=== PATIENT | male | born 1980 | race African-American/Black ===

== ENCOUNTER 2021-06-05 11:24 | Emergency (ER) | payer OTHER ==
[~2021-06-05] VITALS: Ht 182.9 cm; Wt 84.0 kg
[2021-06-05] MEDS ORDERED: SODIUM CHLORIDE 0.9% 1,000 ML IV ONE (11:45)
[2021-06-05 12:04] LABS: HEMATOCRIT. 30.2 % (42.0-52.0); MEAN CORPUSCULAR HEMOGLOBIN 25.2 pg (28.0-32.0); MEAN CORPUSCULAR VOLUME 76.1 fL (80.0-94.0); PLATELET 440 x1000/uL (130-400); RED BLOOD CELL COUNT 3.97 mill/uL (4.7-6.1)
[2021-06-05 12:13] LABS: CHLORIDE 104 mEq/L (98-107)
[2021-06-05 12:18] LABS: ETHANOL BLOOD < 10 mg/dL
[2021-06-05 12:34] LABS: CLARITY URINE CLEAR (CLEAR); COLOR URINE YELLOW (YELLOW); KETONES URINE NEGATIVE (NEGATIVE); LEUKOCYTE ESTERASE URINE NEGATIVE (NEGATIVE); NITRITE URINE NEGATIVE (NEGATIVE); OCCULT BLOOD URINE 1+ (NEGATIVE); PROTEIN URINE 2+ (NEGATIVE); SPECIFIC GRAVITY URINE 1.017 (1.005-1.030); UROBILINOGEN URINE 0.2 E.U./dL (0.2-1.0)
[2021-06-05 12:39] LABS: PLATELET ESTIMATE SLIGHTLY INCREASED
[2021-06-05 12:57] LABS: VALPROIC ACID < 3.0 ug/mL (50-100)
[2021-06-05 12:58] LABS: *BARBITURATES SCREEN URINE NEGATIVE (NEGATIVE); METHADONE URINE SCREEN NEGATIVE (NEGATIVE); PHENCYCLIDINE URINE SCREEN NEGATIVE (NEGATIVE)
[2021-06-05 12:59] LABS: *AMPHETAMINES SCREEN URINE PRESUMTIVE POSITIVE (NEGATIVE); *BENZODIAZEPINES SCREEN URINE NEGATIVE (NEGATIVE); *COCAINE SCREEN URINE NEGATIVE (NEGATIVE); CANNABINOID URINE SCREEN PRESUMTIVE POSITIVE (NEGATIVE); OPIATES URINE SCREEN NEGATIVE (NEGATIVE)
[2021-06-05] MEDS ORDERED: PHENYTOIN SODIUM EXTENDED 100MG CAPSULE PO NR (14:15)
[2021-06-05 15:12] VITALS: BP 105/61
== END 2021-06-05 16:08 | disposition home or self-care (01) ==
LOC: ER 11:24
DX: G40.909 Epilepsy, unspecified, not intractable, without status epilepticus (principal); F15.10 Other stimulant abuse, uncomplicated; E16.2 Hypoglycemia, unspecified; D50.9 Iron deficiency anemia, unspecified; R22.0 Localized swelling, mass and lump, head; F12.90 Cannabis use, unspecified, uncomplicated; F16.90 Hallucinogen use, unspecified, uncomplicated
CPT/HCPCS: 36415; 80053; 80165; 80185; 80305; 80320; 81003; 82962; 85025; 96360; 96361; 99283; J7030; G0480

== ENCOUNTER 2021-06-30 19:31 | Inpatient (IN) | payer OTHER ==
[~2021-06-30] VITALS: Ht 180.3 cm; Wt 50.8 kg
[2021-06-30] MEDS ORDERED: SODIUM CHLORIDE 0.9% 1,000 ML IV ONE (20:30)
[2021-06-30] MEDS ORDERED: LEVETIRACETAM 1000MG PREMIX 100 ML IV ONE (20:30)
[2021-06-30 21:24] LABS: HEMATOCRIT. 30.6 % (42.0-52.0); HEMOGLOBIN. 9.7 g/dL (14.0-18.0); MEAN CORPUSCULAR HEMOGLOBIN 23.7 pg (28.0-32.0); MEAN CORPUSCULAR VOLUME 75.3 fL (80.0-94.0); RED BLOOD CELL COUNT 4.07 mill/uL (4.7-6.1); RED CELL DISTRIBUTION WIDTH 16.9 % (11.6-14.6)
[2021-06-30 21:29] LABS: CHLORIDE 100 mEq/L (98-107)
[2021-06-30 21:34] LABS: ETHANOL BLOOD < 10 mg/dL
[2021-06-30 21:38] LABS: CREATINE KINASE 195 IU/L (39-308)
[2021-06-30 22:05] LABS: CLARITY URINE CLEAR (CLEAR); COLOR URINE YELLOW (YELLOW); KETONES URINE NEGATIVE (NEGATIVE); LEUKOCYTE ESTERASE URINE NEGATIVE (NEGATIVE); NITRITE URINE NEGATIVE (NEGATIVE); OCCULT BLOOD URINE NEGATIVE (NEGATIVE); PH URINE 7.5 (4.5-8.0); PROTEIN URINE 1+ (NEGATIVE); SPECIFIC GRAVITY URINE 1.016 (1.005-1.030)
[2021-06-30 22:20] LABS: *AMPHETAMINES SCREEN URINE PRESUMTIVE POSITIVE (NEGATIVE); *BENZODIAZEPINES SCREEN URINE NEGATIVE (NEGATIVE); *COCAINE SCREEN URINE NEGATIVE (NEGATIVE); CANNABINOID URINE SCREEN PRESUMTIVE POSITIVE (NEGATIVE); METHADONE URINE SCREEN NEGATIVE (NEGATIVE); OPIATES URINE SCREEN NEGATIVE (NEGATIVE); PHENCYCLIDINE URINE SCREEN NEGATIVE (NEGATIVE)
[2021-06-30 22:22] LABS: *BARBITURATES SCREEN URINE NEGATIVE (NEGATIVE)
[2021-07-01] MEDS ORDERED: KEPP500 MT
[2021-07-01 02:26] LABS: MEAN PLATELET VOLUME 6.9 fl (7.4-10.4); PLATELET 528 x1000/uL (130-400)
[2021-07-01 02:34] LABS: PLATELET ESTIMATE INCREASED
[2021-07-01] MEDS ORDERED: LEVETIRACETAM 500 MG in SODIUM CHLORIDE 0.9% 100 ML IV SCH (09:30)
[2021-07-01] MEDS ORDERED: SODIUM CHLORIDE 0.9% 1,000 ML IV SCH (09:30)
[2021-07-01] MEDS ORDERED: ONDANSETRON HCL 4MG/2ML INJ IV PRN (09:30)
[2021-07-01] MEDS ORDERED: IPRATROPIUM/ALBUTEROL 0.5-3(2.5)MG/3ML NEB HHN PRN (09:30)
[2021-07-01] MEDS ORDERED: LORAZEPAM 2MG/ML CPJ IV PRN (09:30)
[2021-07-01] MEDS ORDERED: DIPHENHYDRAMINE 50MG/ML VIAL IV PRN (09:30)
[2021-07-01] MEDS ORDERED: LEVETIRACETAM 500MG PREMIX 100 ML IV SCH (10:00)
[2021-07-01] MEDS ORDERED: LORAZEPAM 2MG/ML CPJ IM SCH (12:30)
[2021-07-01 16:44] LABS: TOTAL IRON BINDING CAPACITY 216 ug/dL (250-450)
[2021-07-01 17:00] VITALS: BP 156/103
[2021-07-01 17:28] VITALS: BP 156/103
[2021-07-01] MEDS: SODIUM CHLORIDE 0.9% 1,000 ML IV SCH (18:00)
[2021-07-01] MEDS: CLONIDINE 0.1MG TABLET PO PRN ×2 (18:15→18:22)
[2021-07-01 20:00] VITALS: BP 146/95
[2021-07-01 21:13] LABS: VITAMIN B12 SERUM 458 pg/mL (211-911)
[2021-07-02] VITALS (8 sets, daily range): BP systolic 125–161; BP diastolic 83–118
[2021-07-02] MEDS: LEVETIRACETAM 500MG PREMIX 100 ML IV SCH ×2 (01:27→09:13)
[2021-07-02] MEDS: ACETAMINOPHEN 325MG TABLET PO PRN ×2 (01:27→18:10)
[2021-07-02] MEDS: SODIUM CHLORIDE 0.9% 1,000 ML IV SCH (01:29)
[2021-07-02] MEDS: CLONIDINE 0.1MG TABLET PO PRN ×2 (05:10→18:10)
[2021-07-02] MEDS: FLUOXETINE HCL 10 MG CAPSULE PO SCH (13:00)
[2021-07-03] VITALS: BP 139/86
[2021-07-03 04:00] VITALS: BP 148/85
[2021-07-03] MEDS: LEVETIRACETAM 500MG PREMIX 100 ML IV SCH ×3 (06:55→21:05)
[2021-07-03 08:00] VITALS: BP 151/95
[2021-07-03] MEDS: FLUOXETINE HCL 10 MG CAPSULE PO SCH (08:47)
[2021-07-03] MEDS: SODIUM CHLORIDE 0.9% 1,000 ML IV SCH (08:48)
[2021-07-03 12:00] VITALS: BP 116/85
[2021-07-03 16:00] VITALS: BP 125/81
[2021-07-03 17:03] LABS: BASOPHILS % 0.8 % (0.0-2.0); EOSINOPHILS % 1.6 % (0.0-5.0); HEMATOCRIT. 28.4 % (42.0-52.0); HEMOGLOBIN. 9.3 g/dL (14.0-18.0); LYMPHOCYTES % 7.6 % (20.0-50.0); MEAN CORPUSCULAR HEMOGLOBIN 24.2 pg (28.0-32.0); MEAN CORPUSCULAR VOLUME 73.8 fL (80.0-94.0); MONOCYTES % 11.5 % (2.0-8.0); NEUTROPHILS % 78.5 % (40.0-76.0); PLATELET 488 x1000/uL (130-400); RED BLOOD CELL COUNT 3.84 mill/uL (4.7-6.1); RED CELL DISTRIBUTION WIDTH 16.5 % (11.6-14.6)
[2021-07-03 17:06] LABS: CHLORIDE 98 mEq/L (98-107)
[2021-07-04] VITALS: BP 130/88
[2021-07-04 08:00] VITALS: BP 96/150
[2021-07-04] MEDS: LEVETIRACETAM 500MG PREMIX 100 ML IV SCH (08:50)
[2021-07-04] MEDS: FLUOXETINE HCL 10 MG CAPSULE PO SCH (10:42)
[2021-07-04 12:00] VITALS: BP 148/95
[2021-07-04 15:56] VITALS: BP 118/80
[2021-07-04] MEDS: SODIUM CHLORIDE 0.9% 1,000 ML IV SCH (18:31)
[2021-07-04] MEDS ORDERED: IOHEXOL-300 100 ML BOTTLE ONE (19:44)
[2021-07-04 20:00] VITALS: BP 126/79
[2021-07-04 20:10] LABS: BASOPHILS % 0.8 % (0.0-2.0); EOSINOPHILS % 1.5 % (0.0-5.0); HEMATOCRIT. 29.7 % (42.0-52.0); HEMOGLOBIN. 9.7 g/dL (14.0-18.0); LYMPHOCYTES % 7.3 % (20.0-50.0); MEAN CORPUSCULAR HEMOGLOBIN 24.1 pg (28.0-32.0); MONOCYTES % 9.4 % (2.0-8.0); PLATELET 521 x1000/uL (130-400); RED BLOOD CELL COUNT 4.02 mill/uL (4.7-6.1); RED CELL DISTRIBUTION WIDTH 16.5 % (11.6-14.6)
[2021-07-04] MEDS: LEVETIRACETAM 500MG TABLET PO SCH (20:36)
[2021-07-04 21:11] LABS: CHLORIDE 98 mEq/L (98-107)
[2021-07-05] VITALS: BP 130/81
[2021-07-05 04:00] VITALS: BP 139/84
[2021-07-05 08:00] VITALS: BP 139/96
[2021-07-05] MEDS: FLUOXETINE HCL 10 MG CAPSULE PO SCH ×2 (09:00→09:28)
[2021-07-05] MEDS: LEVETIRACETAM 500MG TABLET PO SCH ×3 (09:00→22:46)
[2021-07-05] MEDS ORDERED: FLUO10CA28 PO (10:20)
[2021-07-05 12:00] VITALS: BP 130/89
[2021-07-05 16:00] VITALS: BP 133/80
[2021-07-05] MEDS: SODIUM CHLORIDE 0.9% 1,000 ML IV SCH (17:47)
[2021-07-05 18:31] LABS: CHLORIDE 99 mEq/L (98-107)
[2021-07-06] VITALS: BP 157/93
[2021-07-06 04:00] VITALS: BP 150/90
[2021-07-06] MEDS: FLUOXETINE HCL 10 MG CAPSULE PO SCH (08:05)
[2021-07-06] MEDS: LEVETIRACETAM 500MG TABLET PO SCH ×2 (08:05→20:10)
[2021-07-06 12:00] VITALS: BP 130/90
[2021-07-06] MEDS: SODIUM CHLORIDE 0.9% 1,000 ML IV SCH (18:00)
[2021-07-06 20:05] VITALS: BP 156/101
[2021-07-06] MEDS: ACETAMINOPHEN 325MG TABLET PO PRN (20:10)
[2021-07-07 00:02] VITALS: BP 148/105
[2021-07-07 04:05] VITALS: BP 141/91
[2021-07-07 08:00] VITALS: BP 139/91
[2021-07-07] MEDS: LEVETIRACETAM 500MG TABLET PO SCH ×3 (08:58→23:23)
[2021-07-07] MEDS: FLUOXETINE HCL 10 MG CAPSULE PO SCH ×2 (08:58→09:00)
[2021-07-07 11:41] VITALS: BP 120/80
[2021-07-07 16:00] VITALS: BP 110/77
[2021-07-07] MEDS: SODIUM CHLORIDE 0.9% 1,000 ML IV SCH (18:00)
[2021-07-07 20:40] VITALS: BP 134/90
[2021-07-08 04:00] VITALS: BP 134/89
[2021-07-08] MEDS: LEVETIRACETAM 500MG TABLET PO SCH ×3 (08:23→21:12)
[2021-07-08] MEDS: FLUOXETINE HCL 10 MG CAPSULE PO SCH (08:27)
[2021-07-08] MEDS: SODIUM CHLORIDE 0.9% 1,000 ML IV SCH (18:00)
[2021-07-09] MEDS ORDERED: HALOPERIDOL LACTATE 5MG/ML VIAL IM PRN (05:30)
[2021-07-09 08:00] VITALS: BP 141/91
[2021-07-09] MEDS: FLUOXETINE HCL 10 MG CAPSULE PO SCH (09:00)
[2021-07-09] MEDS: LEVETIRACETAM 500MG TABLET PO SCH ×2 (10:21→23:35)
[2021-07-09] MEDS: SODIUM CHLORIDE 0.9% 1,000 ML IV SCH (18:36)
[2021-07-09 20:00] VITALS: BP 136/94
[2021-07-10] VITALS: BP 128/95
[2021-07-10 04:00] VITALS: BP 139/100
[2021-07-10] MEDS: ACETAMINOPHEN 325MG TABLET PO PRN ×2 (06:00→17:51)
[2021-07-10] MEDS: CLONIDINE 0.1MG TABLET PO PRN ×2 (06:00→22:22)
[2021-07-10 08:00] VITALS: BP 145/100
[2021-07-10] MEDS: FLUOXETINE HCL 10 MG CAPSULE PO SCH (08:24)
[2021-07-10] MEDS: LEVETIRACETAM 500MG TABLET PO SCH ×2 (08:24→22:21)
[2021-07-10 12:00] VITALS: BP 142/100
[2021-07-10 16:00] VITALS: BP 142/102
[2021-07-10] MEDS: SODIUM CHLORIDE 0.9% 1,000 ML IV SCH (18:29)
[2021-07-10 20:00] VITALS: BP 150/79
[2021-07-11] VITALS: BP 149/86
[2021-07-11 04:00] VITALS: BP 155/77
[2021-07-11 08:00] VITALS: BP 151/100
[2021-07-11] MEDS: FLUOXETINE HCL 10 MG CAPSULE PO SCH (08:52)
[2021-07-11] MEDS: LEVETIRACETAM 500MG TABLET PO SCH ×2 (08:52→21:35)
[2021-07-11 12:00] VITALS: BP 133/94
[2021-07-11] MEDS: CLONIDINE 0.1MG TABLET PO PRN (13:34)
[2021-07-11] MEDS ORDERED: LORAZEPAM 0.5MG TABLET PO PRN (14:00)
[2021-07-11] MEDS ORDERED: NON FORMULARY PATIENT HOME MED PO PRN (14:15)
[2021-07-11] MEDS ORDERED: MELATONIN 3MG TABLET PO PRN (14:15)
[2021-07-11 16:00] VITALS: BP 132/87
[2021-07-11] MEDS: SODIUM CHLORIDE 0.9% 1,000 ML IV SCH (18:23)
[2021-07-11] MEDS: ACETAMINOPHEN 325MG TABLET PO PRN (18:24)
[2021-07-11 20:00] VITALS: BP 138/101
[2021-07-11] MEDS ORDERED: NON FORMULARY PATIENT HOME MED PO SCH (21:00)
[2021-07-11] MEDS: MELATONIN 3MG TABLET PO SCH (21:40)
[2021-07-12] VITALS: BP 133/91
[2021-07-12 04:00] VITALS: BP 140/78
[2021-07-12 08:00] VITALS: BP 125/89
[2021-07-12] MEDS: ACETAMINOPHEN 325MG TABLET PO PRN (09:14)
[2021-07-12] MEDS: FLUOXETINE HCL 10 MG CAPSULE PO SCH (09:14)
[2021-07-12] MEDS: LEVETIRACETAM 500MG TABLET PO SCH ×2 (09:14→20:38)
[2021-07-12 12:00] VITALS: BP 134/92
[2021-07-12 16:00] VITALS: BP 131/87
[2021-07-12] MEDS: SODIUM CHLORIDE 0.9% 1,000 ML IV SCH (18:00)
[2021-07-12 20:00] VITALS: BP 143/65
[2021-07-12] MEDS: CLONIDINE 0.1MG TABLET PO PRN (20:41)
[2021-07-12] MEDS: MELATONIN 3MG TABLET PO SCH (21:08)
[2021-07-13] VITALS (7 sets, daily range): BP systolic 120–149; BP diastolic 82–104
[2021-07-13] MEDS: ACETAMINOPHEN 325MG TABLET PO PRN ×2 (00:58→06:35)
[2021-07-13] MEDS: LEVETIRACETAM 500MG TABLET PO SCH ×2 (08:14→21:12)
[2021-07-13] MEDS: FLUOXETINE HCL 10 MG CAPSULE PO SCH (08:14)
[2021-07-13] MEDS: SODIUM CHLORIDE 0.9% 1,000 ML IV SCH (18:00)
[2021-07-13] MEDS: MELATONIN 3MG TABLET PO SCH (21:00)
== END 2021-07-13 21:30 | disposition left against medical advice (07) | DRG 53 ==
LOC: ER 19:31 → 6WST 07-01 04:50 → 6EST 07-09 16:33
PROVIDERS: ADMIT Internal Medicine; ATTEND Internal Medicine
DX: G40.409 Other generalized epilepsy and epileptic syndromes, not intractable, without status epilepticus (principal); C78.00 Secondary malignant neoplasm of unspecified lung; E44.0 Moderate protein-calorie malnutrition; C80.1 Malignant (primary) neoplasm, unspecified; D50.9 Iron deficiency anemia, unspecified; F17.200 Nicotine dependence, unspecified, uncomplicated; D16.4 Benign neoplasm of bones of skull and face; R22.9 Localized swelling, mass and lump, unspecified; F32.9 Major depressive disorder, single episode, unspecified; Z53.29 Procedure and treatment not carried out because of patient's decision for other reasons; Z68.1 Body mass index [BMI] 19.9 or less, adult
CPT/HCPCS: 36415; 70487; 71045; 80048; 80053; 80185; 80305; 80320; 81003; 82140; 82550; 82607; 82962; 83540; 83550; 83605; 83880; 84484; 85025; 85379; 92610; 93005; 93970; 97162; 97166; 97535; 99285; J1630; J1953; J2060; J7030; Q9967; G0480